=== PATIENT | female | born 1945 | race Caucasian/White ===

== ENCOUNTER → 2021-07-03 10:46 | Outpatient (CLI) | payer MEDICARE, SELFPAY ==
--- NOTE | ~2021-07-03 | MR_ITS ---
EXAMINATION: MR lumbar spine wo con EXAM DATE: 07/03/2021 13:49 INDICATION: Lumbar radiculopathy low back pain, occasional leg pain. TECHNIQUE: Multi-sequential, multiplanar MR images of the lumbar spine were obtained without contrast . Sagittal T1, T2, T2 fat saturation images. Axial T2 weighted images. There is no prior study for comparison. FINDINGS: The conus medullaris terminates at the L2-3 level and has normal signal intensity and morph ology. There is moderate disc disease at L2-3, mild to moderate at L5-S1. The vertebral bodies are a ligned in the AP dimension. There are no suspicious marrow signal abnormalities. Paraspinal soft ti ssue is unremarkable. Level by level evaluation: T12-L1: There is a minimal diffuse disc bulge. Facet arthropathy: Mild. Neural foraminal stenosis: No stenosis. Central canal stenosis: No stenosis. L1-L2: There is a minimal diffuse disc bulge. Facet arthropathy: Mild. Neural foraminal stenosis: No stenosis. Central canal stenosis: No stenosis. L2-L3: There is a mild to moderate diffuse disc bulge. Facet arthropathy: Mild. Neural foraminal stenosis: No stenosis. Central canal stenosis: No stenosis. L3-L4: There is a mild diffuse disc bulge. Facet arthropathy: Mild. Neural foraminal stenosis: No stenosis. Central canal stenosis: No stenosis. L4-L5: There is a mild diffuse disc bulge. Facet arthropathy: Mild. Neural foraminal stenosis: Minimal bilateral. Central canal stenosis: No stenosis. L5-S1: There is a moderate diffuse disc bulge asymmetric to the left, superimposed left central protr usion causing mass effect on traversing S1 nerve root. Facet arthropathy: Mild. Neural foraminal stenosis: Moderate left, mild to moderate right. Central canal stenosis: Moderate left lateral recess stenosis. IMPRESSION: 1. L5-S1 disc bulge, left central protrusion causing moderate lateral recess stenosis, some mass eff ect on traversing S1 nerve root. 2. Less spondylosis other levels. Reviewed, dictated and finalized at location A. [employer] IMPRESSION: 1. L5-S1 disc bulge, left central protrusion causing moderate lateral recess s tenosis, some mass effect on traversing S1 nerve root. 2. Less spondylosis other levels.
== END ==
PROVIDERS: PCP Family Medicine; Visit Provider Nurse Practitioner Adult Health
DX: M51.26 Other intervertebral disc displacement, lumbar region (principal); M47.26 Other spondylosis with radiculopathy, lumbar region
CPT/HCPCS: 72148